=== PATIENT | female | born 1960 | race Caucasian/White ===

== ENCOUNTER → 2016-10-22 | Outpatient (CLI) | payer OTHER ==
[~2016-10-22] MED LIST: ASPIRIN; UNK HTN MEDS
== END | disposition home or self-care (01) ==
LOC: MAMMO 13:15
PROVIDERS: ATTEND Specialist
DX: Z12.31 Encounter for screening mammogram for malignant neoplasm of breast (principal)
CPT/HCPCS: G0202

== ENCOUNTER 2018-01-31 19:30 | Emergency (ER) | payer OTHER ==
[~2018-01-31] VITALS: Ht 147.3 cm; Wt 82.0 kg
[2018-02-01] MEDS ORDERED: SILVER NITRATE APPLICATOR STICK TOP ONE (00:45)
[2018-02-01 01:50] VITALS: BP 121/65
== END 2018-02-01 01:50 | disposition home or self-care (01) ==
LOC: ER 19:30
DX: I83.891 Varicose veins of right lower extremity with other complications (principal); R58 Hemorrhage, not elsewhere classified; I10 Essential (primary) hypertension; E78.00 Pure hypercholesterolemia, unspecified
CPT/HCPCS: 99283; Z7610

== ENCOUNTER 2021-01-12 19:56 | Emergency (ER) | payer OTHER ==
[~2021-01-12] VITALS: Ht 147.3 cm; Wt 85.0 kg
[2021-01-12] MEDS ORDERED: KETOROLAC 60MG/2ML VIAL IM ONE (21:15)
[2021-01-12 21:51] VITALS: BP 156/69
[2021-01-12] MEDS ORDERED: IBUP-2029 MT (21:57)
== END 2021-01-12 22:04 | disposition home or self-care (01) ==
LOC: ER 19:56
DX: M25.461 Effusion, right knee (principal); M79.661 Pain in right lower leg; Z91.81 History of falling; I10 Essential (primary) hypertension
CPT/HCPCS: 73562; 73590; 96372; 99284; J1885

== ENCOUNTER 2022-01-10 16:33 | Emergency (ER) | payer OTHER ==
[~2022-01-10] VITALS: Ht 147.3 cm; Wt 86.0 kg
[~2022-01-10 16:33] MED LIST changes: +IBUP-2029 MT
[2022-01-10 16:37] VITALS: BP 214/111
[2022-01-10] MEDS ORDERED: AMLODIPINE 5MG TABLET PO ONE (17:45)
[2022-01-10] MEDS ORDERED: BENAZEPRIL 10MG TABLET PO ONE (17:45)
[2022-01-10] MEDS ORDERED: ACETAMINOPHEN 325MG TABLET PO ONE (18:00)
[2022-01-10 18:37] LABS: CHLORIDE 105 mEq/L (98-107)
[2022-01-10 18:44] LABS: BASOPHILS % 0.6 % (0.0-2.0); HEMATOCRIT. 39.8 % (36.0-48.0); HEMOGLOBIN. 13.6 g/dL (12.0-16.0); LYMPHOCYTES % 30.8 % (20.0-50.0); MEAN CORPUSCULAR HEMOGLOBIN 30.6 pg (28.0-32.0); MEAN CORPUSCULAR VOLUME 89.8 fL (81.0-99.0); MEAN PLATELET VOLUME 8.6 fl (7.4-10.4); MONOCYTES % 7.6 % (2.0-8.0); PLATELET 300 x1000/uL (130-400); RED BLOOD CELL COUNT 4.44 mill/uL (4.2-5.4); RED CELL DISTRIBUTION WIDTH 14.4 % (11.6-14.6)
[2022-01-10 18:46] LABS: ETHANOL BLOOD < 10 mg/dL
[2022-01-10] MEDS ORDERED: AMLO5TAB88 MT (19:43)
[2022-01-10] MEDS ORDERED: BENA-8 MT (19:43)
== END 2022-01-10 20:00 | disposition home or self-care (01) ==
LOC: ER 16:33
DX: I10 Essential (primary) hypertension (principal); M79.601 Pain in right arm
CPT/HCPCS: 36415; 71045; 80053; 80320; 83880; 84484; 85025; 93005; 99285; G0480

== ENCOUNTER 2023-10-12 17:12 | Emergency (ER) | payer OTHER ==
[~2023-10-12] VITALS: Ht 147.3 cm; Wt 87.0 kg
[~2023-10-12 17:12] MED LIST changes: +AMLO5TAB88 MT; +BENA-8 MT
[2023-10-12 17:21] VITALS: O2SAT 99
[2023-10-12] MEDS ORDERED: ACETAMINOPHEN 325MG TABLET PO ONE (18:00)
[2023-10-12] MEDS ORDERED: AMLODIPINE 10MG TABLET PO ONE (18:15)
[2023-10-12] MEDS ORDERED: METHOCARBAMOL 500MG TABLET PO ONE (18:15)
[2023-10-12 18:16] LABS: BASOPHILS % 0.4 % (0.0-2.0); EOSINOPHILS % 0.9 % (0.0-5.0); HEMATOCRIT. 40.8 % (36.0-48.0); HEMOGLOBIN. 14.2 g/dL (12.0-16.0); LYMPHOCYTES % 25.9 % (20.0-50.0); MEAN CORPUSCULAR HEMOGLOBIN 31.9 pg (28.0-32.0); MEAN CORPUSCULAR HGB CONC 34.8 g/dL (31.0-37.0); MEAN CORPUSCULAR VOLUME 91.7 fL (81.0-99.0); MEAN PLATELET VOLUME 8.9 fl (7.4-10.4); MONOCYTES % 7.6 % (2.0-8.0); NEUTROPHILS % 65.2 % (40.0-76.0); PLATELET 293 x1000/uL (130-400); RED BLOOD CELL COUNT 4.45 mill/uL (4.2-5.4); RED CELL DISTRIBUTION WIDTH 14.5 % (11.6-14.6)
[2023-10-12 18:20] LABS: CHLORIDE 108 mEq/L (98-107); SODIUM 139 mEq/L (136-145)
[2023-10-12 18:21] LABS: CARBON DIOXIDE 27 mEq/L (21-32)
[2023-10-12 18:22] LABS: CALCIUM 9.5 mg/dL (8.7-10.4)
[2023-10-12 18:26] LABS: CREATININE 0.8 mg/dL (0.6-1.0)
[2023-10-12 18:27] LABS: GLUCOSE 116 mg/dL (70-105); UREA NITROGEN BLOOD 12 mg/dL (9-23)
[2023-10-12 18:29] LABS: TROPONIN I HIGH SENSITIVITY < 4 ng/L (3.0-34)
[2023-10-12] MEDS ORDERED: METH-653 MT (18:54)
[2023-10-12] MEDS ORDERED: ACET-2708 MT (18:54)
[2023-10-12 20:47] VITALS: BP 161/81; PULSE 77; RESP 12; TEMP 98.9
[2023-10-12] MEDS: METHOCARBAMOL 500MG TABLET PO SCH (20:50)
[2023-10-12] MEDS: ACETAMINOPHEN 325MG TABLET PO SCH (20:50)
[2023-10-12] MEDS: AMLODIPINE 5MG TABLET PO NR (20:51)
== END 2023-10-12 21:00 | disposition home or self-care (01) ==
LOC: ER 17:12
DX: R07.89 Other chest pain (principal); M79.601 Pain in right arm; I10 Essential (primary) hypertension; Z79.899 Other long term (current) drug therapy
CPT/HCPCS: 36415; 71045; 80048; 83880; 84484; 85025; 93005; 99285